=== PATIENT | male | born 1980 | race Caucasian/White ===

== ENCOUNTER 2023-09-20 13:22 | Emergency (ER) | payer SELFPAY ==
[~2023-09-20] VITALS: Ht 190.5 cm; Wt 109.3 kg
[2023-09-20 13:22] VITALS: BP 132/97; TEMP 97.6; O2SAT 98
[2023-09-20] MEDS: cefTRIAXone SOD 1 GM in D5W MINI-BAG PLUS 50 ML IV ONE (14:39)
[2023-09-20] MEDS: LIDOCAINE W/EPINEPHRINE 1% 20ML VIAL SC ONE (16:43)
[2023-09-20] MEDS ORDERED: CEPH500C PO (17:46)
== END 2023-09-20 17:50 | disposition home or self-care (01) ==
LOC: M ED 13:22
DX: S62.653B Nondisplaced fracture of middle phalanx of left middle finger, initial encounter for open fracture (principal); S61.301A Unspecified open wound of left index finger with damage to nail, initial encounter; S61.313A Laceration without foreign body of left middle finger with damage to nail, initial encounter; W31.2XXA Contact with powered woodworking and forming machines, initial encounter; I10 Essential (primary) hypertension; F17.200 Nicotine dependence, unspecified, uncomplicated; F10.10 Alcohol abuse, uncomplicated; Z79.2 Long term (current) use of antibiotics; Y92.9 Unspecified place or not applicable; Y93.9 Activity, unspecified; Y99.0 Civilian activity done for income or pay
CPT/HCPCS: 12001; 73140; 96374; 99283; J0696